=== PATIENT | male | born 1980 | race Native Hawaiian/Other Pacific Islander ===

== ENCOUNTER 2019-08-20 08:32 | Emergency (ER) | payer OTHER, SELFPAY ==
[2019-08-20 08:51] VITALS: BP 127/78; PULSE 82; RESP 18; TEMP 36.8; O2SAT 96
--- NOTE | 2019-08-20 09:28 | ED.URI ---
HPI - URI/Sore Throat General Stated Complaint: sinus infection Time Seen by Provider: 08/20/19 09:28 Source: patient and family History of Present Illness HPI Narrative: Patient presents with a 10-day history of sinus pressure and pain. Patient states he uses a sinus rinse on a regular basis to help with his sinus pressure but has not had much relief in the past 2 days. No fever. No shortness of breath no chest pain but does report a productive cough at times. Patient states he is normally healthy individual. Related Data Allergies Allergy/AdvReac Type Severity Reaction Status Date / Time No Known Allergies Allergy Verified 08/20/19 09:30 Review of Systems Review of Systems: Narrative: CONSTITUTIONAL: Denies fever, chills, or sweats. EYES: Denies visual changes, redness, or discharge. ENT: Denies rhinorrhea, congestion, sore throat, or otalgia. CARDIOVASCULAR: Denies chest pain, palpitations, or edema. RESPIRATORY: Denies cough or dyspnea. GASTROINTESTINAL: Denies abdominal pain, nausea, vomiting, or diarrhea. GENITOURINARY: Denies dysuria or hematuria. SKIN: Denies rash or itching. MUSCULOSKELETAL: Denies back pain, joint pain, or myalgia. NEUROLOGIC: Denies headache, numbness, or weakness. PSYCHIATRIC: Denies anxiety or depression. PMFSH Comments At time of signature, agree with nursing past medical, surgical, social and family history. There is no relevant family history pertinent to the presenting complaint Exam Narrative: Exam Narrative: GENERAL: Well-appearing, well-nourished, and in no acute distress. HEAD: Normocephalic, atraumatic. EYES: PERRLA and EOMI. ENT: Nares clear, no rhinorrhea or epistaxis. Mucous membranes moist. Moderate amount of maxillary sinus pressure and tenderness mild postnasal drainage NECK: Supple. CHEST: Clear to auscultation. No respiratory distress. HEART: Regular rate and rhythm. No murmur heard. Normal peripheral pulses. ABDOMEN: Soft, nontender, nondistended, normal active bowel sounds. EXTREMITIES: Normal range of motion. No edema. SKIN: Warm, dry, no rash. NEURO: No focal deficits. Alert and oriented x3. Pavel Coma Scale Eye Opening: Spontaneous 4 [place]man Coma Scale Motor: Obeys Commands 6 [place]man Coma Scale Verbal: Oriented 5 Skillman Coma Scale Total 15 Course Vital Signs Vital signs: Vital Signs Temperature 36.8 C 08/20/19 08:51 Pulse Rate 82 08/20/19 08:51 Respiratory Rate 18 08/20/19 08:51 Blood Pressure 127/78 08/20/19 08:51 Pulse Oximetry 96 08/20/19 08:51 Temperature 36.8 C 08/20/19 08:51 Pulse Rate 82 08/20/19 08:51 Respiratory Rate 18 08/20/19 08:51 Blood Pressure 127/78 08/20/19 08:51 Pulse Oximetry 96 08/20/19 08:51 Addressed elevated BP today. Today's blood pressure higher than recommended range. Discussed importance of follow -up with PCP and possible rodent exterminator effects/cardiovascular events related to HTN. Currently patient denies headache, dizziness, vision changes, CP or shortness of breath. MDM - URI/Sore Throat Differential Diagnosis Differential diagnosis: Likely upper respiratory infection, sinusitis and bronchitis Critical Care Time Critical Care Time Critical Care Time: No Discharge Plan Discharge Clinical Impression: Sinusitis, acute maxillary Patient Disposition: Home, Self-Care Condition: Stable Instructions: Antibiotic Form Additional Instructions: INUSITIS, Abx Tx, Drink plenty of water (with the goal to keep your urine clear to light yellow) and get plenty of rest (8-9 hours a night).You may try saline rinses (Chiawuli Tak/Simply Saline/Neti Pot), Arnav's Vaporub, or a humidifier/hot showers for your nose symptoms. You may also try taking an anti-histamine during the day (such as Nga/Claritin/Zyrtec) and Benadryl at night as dosed on the package regularly for the next 1-2 weeks to help dry passageways to decrease drainage and symptoms. You may try Delsym or Mucinex DM as dosed on the package,
== END 2019-08-20 09:35 | disposition home or self-care (01) ==
PROVIDERS: Emergency Provider Nurse Practitioner Family
DX: J01.00 Acute maxillary sinusitis, unspecified (principal)
CPT/HCPCS: 99203; G0463